=== PATIENT | female | born 1945 | race Caucasian/White ===

== ENCOUNTER 2022-08-01 14:50 | Emergency (ER) | payer MEDICARE ==
[~2022-08-01] VITALS: Ht 160 cm; Wt 104.3 kg
[2022-08-01 15:16] LABS: BASOPHILS % (AUTO) 0.5 % (0.0-5.0); EOSINOPHILS % (AUTO) 3.4 % (0.0-8.0); HEMATOCRIT 37.8 % (36-48); LYMPHOCYTES % (AUTO) 35.2 % (21.0-51.0); MEAN CORPUSCULAR HEMOGLOBIN 32.6 pg (27.0-33.0); MEAN CORPUSCULAR HGB CONC 33.9 g/dL (32.0-36.0); MEAN CORPUSCULAR VOLUME 96.2 fL (79-99); MONOCYTES % (AUTO) 8.3 % (3.0-13.0); NEUTROPHILS % (AUTO) 52.3 % (40.0-77.0); PLATELET COUNT (AUTO) 201 K/uL (130-400); RED BLOOD CELL COUNT(AUTO) 3.93 MIL/uL (4.00-5.50); RED CELL DISTRIBUTION WIDTH 14.3 % (11.0-15.5); WHITE BLOOD COUNT (AUTO) 7.6 K/uL (4.8-10.8)
[2022-08-01 15:24] LABS: POTASSIUM 4.2 mmol/L (3.5-5.1)
[2022-08-01 15:31] LABS: ALBUMIN 3.7 g/dL (3.5-5.0); TOTAL PROTEIN, SERUM 6.8 g/dL (6.0-8.3)
[2022-08-01 15:39] LABS: B-TYPE NATRIURETIC PEPTIDE 46 pg/mL (0-100)
[2022-08-01 18:37] VITALS: BP 140/57
== END 2022-08-01 18:37 | disposition home or self-care (01) ==
LOC: EDH 14:50
DX: M94.0 Chondrocostal junction syndrome [Tietze] (principal); M79.18 Myalgia, other site; I11.0 Hypertensive heart disease with heart failure; I50.9 Heart failure, unspecified; E11.9 Type 2 diabetes mellitus without complications; I25.10 Atherosclerotic heart disease of native coronary artery without angina pectoris; E78.00 Pure hypercholesterolemia, unspecified; Z88.1 Allergy status to other antibiotic agents; Z95.5 Presence of coronary angioplasty implant and graft
CPT/HCPCS: 36415; 71045; 80053; 83880; 84484; 85025; 93005